=== PATIENT | male | born 1945 | race Caucasian/White ===

== ENCOUNTER 2017-04-08 09:28 | Day surgery (SDC) | payer OTHER ==
[2017-04-08] MEDS ORDERED: DIAZEPAM 5 MG TAB PO ONE (09:37)
[2017-04-08] MEDS ORDERED: NS 1,000 ML IV ONE (09:37)
[2017-04-08] MEDS ORDERED: FAMOTIDINE 20 MG TAB PO ONE (09:37)
[2017-04-08] MEDS ORDERED: ASPIRIN EC 325 MG TAB PO ONE (09:37)
[2017-04-08] MEDS ORDERED: diphenhydrAMINE 25 MG CAP PO ONE (09:37)
[2017-04-08 10:22] LABS: % IMMATURE GRANULYOCYTES 1.1 % (0.0-1.1); ABSOLUTE IMMATURE GRANULOCYTES 0.08 10^3/uL (0.00-0.10); ADD DIFF? NO; ADD MORPH? NO; ADD SCAN? NO; ATYPICAL LYMPHOCYTE FLAG 10 (0-99); FRAGMENT RBC FLAG 0 (0-99); HEMATOCRIT 41.3 % (40.0-51.0); HEMOGLOBIN 13.5 g/dL (13.7-17.5); LEFT SHIFT FLG 10 (0-99); LIPEMIA HEMOLYSIS FLAG 80 (0-99); MEAN CELL HEMOGLOBIN 32.7 pg (27.9-34.1); MEAN CELL HEMOGLOBIN CONCENTR. 32.7 g/dL (32.4-36.7); MEAN PLATELET VOLUME 11.6 fL (8.7-11.7); PLATELET CLUMPS FLAG 20 (0-99); PLATELET COUNT 155 10^3/uL (150-400); RED BLOOD CELL COUNT 4.13 10^6/uL (4.40-6.38); RED CELL DISTRIBUTION WIDTH 13.2 % (11.5-15.2)
[2017-04-08 10:31] LABS: INR 0.98 (0.83-1.16); PROTIME(PATIENT) 12.9 SEC (12.0-15.0)
[2017-04-08 10:46] LABS: ANION GAP 11 mEq/L (8-16); CALCIUM 9.6 mg/dL (8.5-10.4); CARBON DIOXIDE 24 mEq/l (22-31); CHLORIDE 107 mEq/L (97-110); CHOLESTEROL 203 mg/dL (140-220); CHOLESTEROL/HDL RATIO 3.44 RATIO (1.00-4.97); CREATININE 1.2 mg/dL (0.7-1.3); GLOMERULAR FILTRATION RATE 59; GLUCOSE 85 mg/dL (70-100); HIGH DENSITY LIPOPROTEIN 59 mg/dL (40-65); LDL/HDL RATIO 1.98 RATIO (1.00-3.64); LOW DENSITY LIPOPROTEIN 117 mg/dL (80-100); MAGNESIUM 1.7 mg/dL (1.6-2.3); NON-HIGH DENSITY LIPOPROTEIN 144 mg/dL (90-129); POTASSIUM 3.7 mEq/L (3.5-5.2); SODIUM 142 mEq/L (134-144); TRIGLYCERIDE 138 mg/dL (40-150); VERY LOW DENSITY LIPOPROTEINS 27 mg/dL (8-25)
[2017-04-08] MEDS ORDERED: LIDOCAINE 1% 30 ML SDV ONE ×2 (10:47→10:58)
[2017-04-08] MEDS ORDERED: MIDAZOLAM 2 MG/2 ML VIAL ONE ×3 (10:48→11:53)
[2017-04-08] MEDS ORDERED: fentaNYL 100 MCG/2 ML INJ ONE ×2 (10:48→11:42)
[2017-04-08] MEDS ORDERED: IOPAMIDOL (ISOVUE-370) 150 ML BTL IV ONE ×2 (10:49→12:18)
[2017-04-08] MEDS ORDERED: HEPARIN 10,000 UNIT/10 ML MDV ONE (10:59)
[2017-04-08] MEDS ORDERED: VERAPAMIL 5 MG/2 ML VIAL ONE (10:59)
--- NOTE | 2017-04-08 12:38 | PDDXCAT ---
Diagnostic Cath Note - . Date: 04/08/17 Intervention: none *Procedure 1. selective coronary angiography 2. left heart catheterization 3. left ventriculogram Indication: Lei presents with ongoing dyspnea on exertion with an anginal equivalent of CCS III angina and NYHA III symptoms of heart failure. He had a recent EBCT scan that revealed a positive and highly elevated calcium score of 1242 [place], placing him between the 75th and 90th percentile when indexed for age and sex. The patient has not had nuclear stress test in almost 2 years and his symptoms have not improved in spite of regular exercise. Access: Right radial artery (a plethysmography trace assisted Pastor's Test was used to document dual artery supply to the hand and index finger prior to access ). *Materials Left Heart Cath size: 5F Left Heart Cath materials: JL3.5, JR4.0, pigtail, AL1, MPA1, AR1 *Findings-Selective Coronary Angiography LM: The left main is ~5 mm in size and bifurcates into an LAD and circumflex system. There is no significant LM disease. LAD: The proximal LAD is ~4.5 mm in size with an aneurysmal segment in the proximal portion. Maximal luminal stenosis of 30% in the proximal LAD with FAUSTO III flow throughout. LCX: There is diffuse luminal irregularities of the circumflex obtuse marginal consistent with atherosclerosis. There is no evidence of flow-limiting disease with FAUSTO III flow throughout the left circumflex and OM system. RCA: Cannulation of the right coronary artery proved to be difficult. The RCA was ultimately successfully visualized with a 5F AR1. The right coronary artery is dominant (gives rise to PDA and PLV branches) and ~3 mm in size. Maximal luminal stenosis of 40-50% in the proximal RCA. There is no evidence of flow- limiting disease with FAUSTO III flow throughout. Ultimately the AR1 was the best catheter for engagement of the right coronary artery. Right radial approach is not recommended in the future secondary to tortuosity of the brachiocephalic artery. *Findings-Left Heart Catheterization EDP: 20 mmHg LVEF: 65% AO: 124/79/100 mmHg Peak to peak aortic gradient: 9 mmHg LVG: There is normal LV systolic function with elevated ejection fraction without segmental wall motion abnormalities. The visualized portion of the thoracic aorta appears to be enlarged without evidence of carmen dissection or aneurysm. *Summary Complications: None Estimated blood loss: <50ml Closure method: TR Band Assessment/Conclusion: 1. [place] vessel coronary artery disease that is non-flow limiting (maximal luminal stenosis of 30% in the proximal portion of an aneurysmal LAD with FAUSTO III flow throughout as well as a 40-50% proximal RCA lesion with FAUSTO III flow - - there were luminal irregularities throughout the right-dominant consistent with atherosclerosis without flow-limiting obstruction). The patient's coronary artery disease should be managed medically including continued statin therapy and healthy lifestyle including diet and exercise to achieve a non-HDL cholesterol <100 mg/dL. Intervention was not needed at the present time. 2. Normal left ventricular systolic function with no regional wall motion abnormalities on left ventriculogram and normal ejection fraction at 65%. 3. Elevated LVEDP at 20 mmHg with a peak to peak aortic gradient at 9 mmHg. The visualized portion of the thoracic aorta appears to be enlarged without evidence of carmen dissection or true aneurysm. Repeat imaging of the proximal aorta is recommended every 2 years to track the size of the thoracic aorta, sooner if clinical symptoms or situation warrants. Ultimately the AR1 was the best catheter for engagement of the right coronary artery. Right radial approach is not recommended in the future secondary to tortuosity of the brachiocephalic artery. Patient Problems: Problems Problem Status Onset Chills Acute Headache Acute Viral meningitis Acute
--- NOTE | 2017-04-08 13:05 | CPEKG ---
Heart Rate: 80 RR Interval: 750 P-R Interval: 172 QRSD Interval: 80 QT Interval: 384 QTC Interval: 443 P [place]: 13 QRS [place]: 2 T Wave [place]: 16 EKG Severity - OTHERWISE NORMAL ECG - EKG Impression: SINUS RHYTHM EKG Impression: VENTRICULAR PREMATURE COMPLEX Electronically Signed By: Brennan Giordano 08-Apr-2017 14:45:53
== END 2017-04-08 16:46 | disposition home or self-care (01) ==
LOC: FCATH 09:28
PROVIDERS: ATTEND Internal Medicine Cardiovascular Disease
PROC: 4A023N7 Measurement of Cardiac Sampling and Pressure, Left Heart, Percutaneous Approach (ICD-10-PCS; principal; 2017-04-08)
PROC: B2111ZZ Fluoroscopy of Multiple Coronary Arteries using Low Osmolar Contrast (ICD-10-PCS; principal; 2017-04-08)
PROC: B2151ZZ Fluoroscopy of Left Heart using Low Osmolar Contrast (ICD-10-PCS; principal; 2017-04-08)
DX: R06.02 Shortness of breath (principal); R93.1 Abnormal findings on diagnostic imaging of heart and coronary circulation; I25.10 Atherosclerotic heart disease of native coronary artery without angina pectoris; I10 Essential (primary) hypertension; I49.3 Ventricular premature depolarization
CPT/HCPCS: 93005; 93458; C1769; J1644; J2250; J3010; Q9967

== ENCOUNTER 2017-10-15 23:37 | Emergency (ER) | payer OTHER ==
[2017-10-15 23:55] VITALS: TEMP 97.5; O2SAT 94
--- NOTE | 2017-10-16 00:06 | EDPHY ---
H & P HPI/ROS: CC: bleeding from skin biopsy site HPI: This 72-year-old male with extensive past medical history presents emergency department tonight for complaints of bleeding from a skin punch biopsy site on his right shoulder. He states he had the biopsy at about 1:00 p.[address]. this afternoon at Dr. Pantoja's office but did not notice the continued bleeding until he was home this evening. The bleeding soaked through the bandage and onto his shirt. His tried holding pressure but the oozing continued. He takes an 81 mg aspirin per day but denies any other blood thinners. He does not currently have a follow-up appointment scheduled with his cath lab technologist. REVIEW OF SYSTEMS: Constitutional: No fever, no chills. Eyes: No discharge. Respiratory: No cough, no shortness of breath. Cardiac: No chest pain. Gastrointestinal: No abdominal pain, no vomiting. Musculoskeletal: No back pain. Skin: No rashes. Neurological: No headache. Past Medical/Surgical History: PMH: Hypertension, hyperlipidemia, CAD, benign prostatic hypertrophy, neuropathy, chronic kidney disease PSH: Left heart catheterization FH: Non-contributory Allergies: Terazosin, Penicillin Social History: Denies tobacco use, alcoholic beverages usually nightly. . [place]. Smoking Status: Never smoked Physical Exam: General Appearance: Alert, no distress. Eyes: Pupils equal and round no pallor or injection. ENT, Mouth: Mucous membranes are moist. Respiratory: There are no retractions. Cardiovascular: Normal peripheral perfusion. Neurological: Awake and alert. Steady gait. Skin: Warm and dry, no rashes. Continuous bleeding from 0.75 cm punch biopsy site right shoulder. Musculoskeletal: Neck is supple. Extremities are symmetrical, full range of motion. Psychiatric: Patient is oriented X 3, there is no agitation. DIFFERENTIAL DIAGNOSIS: After history and physical exam differential diagnosis was considered for post-procedural skin hemorrhage, thrombocytopenia Constitutional: Initial Vital Signs Temperature (C) 97.5 F 10/15/17 23:49 Heart Rate 82 10/15/17 23:49 Respiratory Rate 18 10/15/17 23:49 Blood Pressure 141/88 H 10/15/17 23:49 O2 Sat (%) 94 10/15/17 23:49 O2 Delivery Mode Room Air Allergies/Adverse Reactions: terazosin Allergy (Intermediate, Verified 08/02/16 11:41) chest pain amoxicillin trihydrate [From Augmentin] Allergy (Verified 08/02/16 11:41) GI potassium clavulanate [From Augmentin] Allergy (Verified 08/02/16 11:41) GI Home Medications: Medication Instructions Recorded Acyclovir [Zovirax 200 mg (*)] 400 mg PO TID PRN 08/02/16 Aspirin [Aspirin 81mg (*)] 81 mg PO BID 08/02/16 Cholecalciferol Vit D3 [Vitamin D3 1,000 units PO DAILY 08/02/16 (*)] Gabapentin [Neurontin 400 MG (*)] 400 mg PO BID@0600,1200 08/02/16 Gabapentin [Neurontin 400 MG (*)] 800 mg PO HS 08/02/16 Herbals/Supplements -Info Only 1 ea PO DAILY 08/02/16 Hydrochlorothiazide [HCTZ (*)] 12.5 mg PO DAILY 08/02/16 Loperamide HCl [Imodium 2 mg (*)] 4 mg PO ONCE PRN 08/02/16 Losartan Potassium [Cozaar 25 mg 25 mg PO BID 08/02/16 (*)] Pravastatin Sodium [Pravachol] 40 mg PO HS 08/02/16 Ranitidine HCl [Zantac] 75 mg PO DAILY PRN 08/02/16 Tamsulosin HCl [Flomax 0.4 MG (*)] 0.4 mg PO HS 08/02/16 Psyllium Husk [Metamucil] 0.52 gm PO DAILY 08/04/16 Acetaminophen [Tylenol 325mg (*)] 650 mg PO DAILY PRN 04/08/17 Alendronate Sodium [Fosamax 70 MG 70 mg PO WE@0700 04/08/17 (*)] Allopurinol [Allopurinol 300 MG 300 mg PO DAILY 04/08/17 (RX)] C/E/Zn/Cu/OM3/DHA/EPA/LUT/ZEAX 1 each PO DAILY 04/08/17 [Preservision Areds 2 Softgel] Glucosamine/Chondroitin 1 each PO DAILY 04/08/17 [Glucosamine/Chondroitin (*)] Zolpidem Tartrate [Ambien 5MG (*)] 5 mg PO HS 04/08/17 predniSONE [Abby] 8 mg PO DAILY 04/08/17 Medical Decision Making ED Course/Re-evaluation: The patient was seen and examined. Vital signs reviewed. Old records reviewed. The patient had a normal platelet count recently therefore no labs were drawn. Three applications of Surgicel in total were applied to the site of the punch biopsy on the right shoulder. The bleeding eventually ceased. A Tegaderm dressing was applied. The patient was advised to follow up with his cath lab technologist by phone tomorrow for further instruction. He should keep the wound clean and dry for the next 24 hours. He was advised to return to the emergency room should the bleeding resume or if he has any other concerns. Departure - Departure Disposition: Home, Routine, Self-Care Clinical Impression: Postprocedural hemorrhage of skin and subcutaneous tissue following a dermatologic procedure Condition: Good Instructions: Skin biopsy (ED) Additional Instructions: Leave the dressing in place for 24 hours if possible. Remove dressing if it becomes wet or soiled. Contact your cath lab technologist tomorrow for further instructions or return to the ER sooner if uncontrolled bleeding or any other concerns. Referrals: Patient,NotPresent [Primary Care Provider] - As per Instructions ARNOLDO PANTOJA [Medical Doctor] - 1 day, if not improved
[2017-10-16 01:04] VITALS: BP 135/89; PULSE 80; RESP 16
== END 2017-10-16 01:04 | disposition home or self-care (01) ==
LOC: CED 23:37
DX: L76.21 Postprocedural hemorrhage of skin and subcutaneous tissue following a dermatologic procedure (principal); I25.10 Atherosclerotic heart disease of native coronary artery without angina pectoris; I12.9 Hypertensive chronic kidney disease with stage 1 through stage 4 chronic kidney disease, or unspecified chronic kidney disease; N18.9 Chronic kidney disease, unspecified; Z79.82 Long term (current) use of aspirin

== ENCOUNTER → 2017-11-07 | Outpatient (CLI) | payer OTHER | LOC: BHCLAF 08:30 | PROVIDERS: ATTEND Internal Medicine Cardiovascular Disease | DX: R01.1 Cardiac murmur, unspecified (principal); I10 Essential (primary) hypertension; R60.9 Edema, unspecified | CPT/HCPCS: 93306-PO ==

== ENCOUNTER → 2018-01-07 | Outpatient (CLI) | payer OTHER | LOC: BMCIMAGING 16:08 | PROVIDERS: ATTEND Physician Assistant Medical | DX: M15.4 Erosive (osteo)arthritis (principal); I77.89 Other specified disorders of arteries and arterioles ==

== ENCOUNTER → 2019-04-01 | Outpatient (CLI) | payer OTHER | LOC: BHERIE 10:00 | PROVIDERS: ATTEND Internal Medicine Cardiovascular Disease | DX: I35.0 Nonrheumatic aortic (valve) stenosis (principal) | CPT/HCPCS: 93306-PO ==

== ENCOUNTER 2019-04-02 19:59 | Emergency (ER) | payer OTHER ==
--- NOTE | 2019-04-02 21:57 | EDPHY ---
H & P Stated Complaint: swelling left foot, concerned for blood clot - Personal History Current Tetanus Diphtheria and Acellular Pertussis (TDAP): Yes - Medical/Surgical History Hx Asthma: No Hx Chronic Respiratory Disease: No Hx Diabetes: No Hx Cardiac Disease: No Hx Renal Disease: Yes Hx Cirrhosis: No Hx Alcoholism: No Hx HIV/AIDS: No Hx Splenectomy or Spleen Trauma: No Other PMH: HTN, heart murmur, cholesterol, BPH. right kidney surgery age 22, right shoulder surgery 2012 - Social History Smoking Status: Never smoked Time Seen by Provider: 04/02/19 20:14 HPI/ROS: Chief complaint: Left foot pain History of present illness: This is a 74-year-old male who presents to the emergency department for left foot pain. He reports pain in the front half of his foot. He states 2.5 weeks ago he struck it against a stair. It is been sore since then. There has been some swelling. It makes it difficult to walk. He did see his primary care doctor today, a D-dimer was ordered and was positive , he was sent here to rule out DVT. He has an x-ray ordered but has not gotten it as of yet. He denies other associated signs or symptoms including no abnormal coolness or paresthesias in the foot. There is no pain or swelling involving the rest of the left lower extremity from the ankle up to the torso. No chest pain, shortness of breath or cough. (Alfred Kuhn) - Physical Exam Exam: General: Alert, nontoxic. Skin: Mild edema to the distal dorsum of the left foot. No erythema. No warmth. Musculoskeletal: Tenderness to the distal aspect of the foot. The rest of the foot is nontender. The ankle and the rest of the left lower extremity is unremarkable. He is moving the digits of the foot and the ankle well. Vascular: DP and PT pulses 2+. Neurologic: Sensation intact in the left leg. (Alfred Kuhn) Constitutional: Initial Vital Signs Temperature (C) 36.6 C 04/02/19 20:02 Heart Rate 88 04/02/19 20:02 Respiratory Rate 16 04/02/19 20:02 Blood Pressure 115/73 04/02/19 20:02 O2 Sat (%) 96 04/02/19 20:02 O2 Delivery Mode Room Air Allergies/Adverse Reactions: terazosin Allergy (Intermediate, Verified 08/02/16 11:41) chest pain amoxicillin trihydrate [From Augmentin] Allergy (Verified 08/02/16 11:41) GI potassium clavulanate [From Augmentin] Allergy (Verified 08/02/16 11:41) GI Home Medications: Medication Instructions Recorded Acyclovir [Zovirax 200 mg (*)] 400 mg PO TID PRN 08/02/16 Aspirin [Aspirin 81mg (*)] 81 mg PO BID 08/02/16 Cholecalciferol Vit D3 [Vitamin D3 1,000 units PO DAILY 08/02/16 (*)] Herbals/Supplements -Info Only 1 ea PO DAILY 08/02/16 Loperamide HCl [Imodium 2 mg (*)] 4 mg PO ONCE PRN 08/02/16 Losartan Potassium [Cozaar 25 mg 25 mg PO BID 08/02/16 (*)] Pravastatin Sodium [Pravachol] 40 mg PO HS 08/02/16 Ranitidine HCl [Zantac] 75 mg PO DAILY PRN 08/02/16 Tamsulosin HCl [Flomax 0.4 MG (*)] 0.4 mg PO HS 08/02/16 Acetaminophen [Tylenol 325mg (*)] 650 mg PO DAILY PRN 04/08/17 Allopurinol [Allopurinol 300 MG 300 mg PO DAILY 04/08/17 (RX)] C/E/Zn/Cu/OM3/DHA/EPA/LUT/ZEAX 1 each PO DAILY 04/08/17 [Preservision Areds 2 Softgel] Furosemide 04/02/19 Neurontin 04/02/19 Medical Decision Making - Diagnostics Imaging: Discussed imaging studies w/ bingo caller Radiologist, I viewed and interpreted images myself Procedures: Procedure: Splint placement. A postop shoe was applied. After application of the splint I returned and re- examined the patient. The splint was adequately immobilizing the joint and distal to the splint the patient's circulation and sensation was intact. (Alfred Kuhn) ED Course/Re-evaluation: Patient seen under the supervision of my secondary supervising physician Dr. Rinku Tran. Patient presents to the emergency department for 2.5 weeks of left forefoot pain. The foot is neurovascularly intact. Both x-ray and ultrasound of the left lower extremity are unremarkable. I suspect a soft tissue injury such as contusion or sprain or strain. He is placed in a postop shoe for comfort and rest of the foot. He is asked to follow up with his primary care doctor or Podiatry for recheck. He has seen Dr. Alexandra Serna before and I have asked him to return to her if possible. Return precautions are given. (Alfred Kuhn) I did not see this patient while he was in the emergency department. However his care was discussed with the PA while the patient was in the department. I agree with treatment plan and management (Rinku Tran) Differential Diagnosis: Included but not limited to contusion, sprain or strain, bony fracture including stress fracture and occult fracture, joint dislocation, DVT, doubtful infectious pathology (Alfred Kuhn) Departure - Departure Disposition: Home, Routine, Self-Care Clinical Impression: Foot pain, left Condition: Good Instructions: Foot Sprain (ED) Additional Instructions: Follow-up with your primary care doctor or podiatry for continued evaluation and care next week If symptoms worsen or new symptoms develop return to the emergency room for recheck Referrals: Suri Bruce MD [Primary Care Provider] - As per Instructions
[2019-04-02 22:22] VITALS: BP 110/68
== END 2019-04-02 22:45 | disposition home or self-care (01) ==
DX: M79.672 Pain in left foot (principal)
CPT/HCPCS: 73630; 93971; 99284; L4386

== ENCOUNTER → 2019-04-08 | Outpatient (CLI) | payer OTHER | LOC: FIMAGING 15:33 | PROVIDERS: ATTEND Podiatrist | DX: S93.325A Dislocation of tarsometatarsal joint of left foot, initial encounter (principal); M19.072 Primary osteoarthritis, left ankle and foot; R60.9 Edema, unspecified | CPT/HCPCS: 73718-PN ==